=== PATIENT | male | born 1995 | race Caucasian/White ===

== ENCOUNTER 2023-04-17 18:02 | Emergency (ER) | payer OTHER, SELFPAY ==
--- NOTE | ~2023-04-17 | XR_ITS ---
EXAMINATION: XR wrist LT min 3V DATE: 04/17/2023 18:19 INDICATION: Left wrist pain post fall TECHNIQUE: Posteroanterior, ulnar deviation, oblique, and lateral views of the left wrist were obtain ed. COMPARISON: none FINDINGS: Small minimally displaced fracture along the volar margin of the distal pole of the scaphoid which ex tends to involve a small portion of the distal articular surface. No other fractures identified. Join t spaces are otherwise normal. IMPRESSION: 1. Minimally displaced small intra-articular fracture involving the volar aspect of the distal pole o f the scaphoid. Reviewed, dictated and finalized at location A. IMPRESSION: 1. Minimally displaced small intra-articular fracture involving the volar aspec t of the distal pole of the scaphoid.
--- NOTE | 2023-04-17 18:04 | ED.UPPEXIN ---
HPI - Extremity Injury (Upper) General Stated Complaint: Left Wrist injury Time Seen by Provider: 04/17/23 18:17 Source: patient and RN notes reviewed Mode of arrival: ambulatory Limitations: no limitations History of Present Illness HPI narrative: 27-year-old male presents with concern for left radial wrist pain. He reports this evening he was caring a package in straight away while on his skateboard when he hit a pebble and fell off the skateboard. He reports 3/10 pain at rest increasing pain with range of motion. Denies decreased sensation or strength. MD complaint: injury to: left and wrist Related Data Home Medications Medication Instructions Recorded Confirmed No Home Medications 04/17/23 04/17/23 Allergies Allergy/AdvReac Type Severity Reaction Status Date / Time No Known Allergies Allergy Verified 04/17/23 18:12 Review of Systems Review of Systems: CONSTITUTIONAL: Denies malaise, chills, sweats, or fever. SKIN: Denies rash or itching, open skin, laceration, abrasion, redness, warmth, swelling. MUSCULOSKELETAL: Reports left wrist pain NEUROLOGIC: Denies numbness, weakness All systems reviewed & are unremarkable except as noted in HPI and below PMFSH Comments At time of signature, agree with nursing past medical, surgical, social and family history. There is no relevant family history pertinent to the presenting complaint Exam Narrative: GENERAL: Well-appearing, well-nourished, and in no acute distress. HEAD: Normocephalic, atraumatic. EYES: PERRLA, conjunctivae clear NECK: Supple. CHEST: Speaks in full sentences. No respiratory distress. HEART: Regular rate and rhythm. Normal and equal peripheral pulses. EXTREMITIES: Left wrist, hand, digits have grossly normal strength and sensation, grossly normal range of motion. No edema or ecchymosis. 5/5 strength with digit flexion and extension. Normal sensation with sensitivity to light touch and pain. Radial tenderness. No open wounds, no skin tenting, no devitalized tissue or atrophy, no trophic changes, no obvious deformity, alignment normal, nearby joints and structures intact. Distal pulses palpable and equal bilaterally, skin warm, dry, pink. Capillary refill less than 3 seconds. SKIN: Warm, dry, no rash. NEURO: Alert and oriented x3. PSYCH: Normal mood and affect Course Course Emergency Course: Patient is aware of diagnosis, understands and agrees to treatment plan. Anticipatory guidance given. Patient agrees to follow-up as directed and is aware of reasons to seek care at the emergency department. Portions of this record may have been created with voice recognition software Level of Care: Express Care Visit Vital Signs Vital signs: Reviewed. Procedures Orthopedic Splinting/Casting Injury #1: Splinting/Casting Date: 04/17/23 Splinting/Casting Time: 18:37 Side: left Upper Extremity Injury Location: wrist OCL: short arm Pre-Procedure Neuro Vascular Exam: normal Post-Procedure Neuro Vascular Exam: normal Additional Comments: Applied by radioactivity technician MDM - Extremity Injury (Upper) MDM Narrative Medical decision making narrative: Patients injury and pain is consistent with musculoskeletal etiology. No signs of neurological or vascular compromise on exam. Compartments and tissues are soft without signs of compartment syndrome. Pain is felt appropriate for further evaluation on an outpatient basis. Critical Care Time Critical Care Time Critical Care Time: No Discharge Plan Discharge Clinical Impression: Fracture of scaphoid bone of left wrist Patient Disposition: Home, Self-Care Condition: Stable Instructions: Scaphoid Fracture (ED) Additional Instructions: Please rest, ice and elevate the affected extremity. Please take Motrin 600mg every 8 hours, as needed, for pain (take with food). Follow up with Orthopedic Surgery in 1-2 days for further evaluation - please call for an
[2023-04-17 18:11] VITALS: BP 144/77; PULSE 83; RESP 18; TEMP 36.9; O2SAT 100
== END 2023-04-17 18:45 | disposition home or self-care (01) ==
PROVIDERS: Emergency Provider Nurse Practitioner; PCP Family Medicine
DX: S62.012A Displaced fracture of distal pole of navicular [scaphoid] bone of left wrist, initial encounter for closed fracture (principal); V00.131A Fall from skateboard, initial encounter; Y93.51 Activity, roller skating (inline) and skateboarding
CPT/HCPCS: 29125; 73110; 99214; A4565; G0463